=== PATIENT | male | born 1960 | race American Indian/Alaskan Native ===

== ENCOUNTER 2018-12-10 07:06 | Outpatient (CLI) | payer OTHER ==
[2018-12-10 07:50] LABS: Blood Urea Nitrogen 16 mg/dL (9-20)
== END 2018-12-10 07:07 | disposition home or self-care (01) ==
LOC: MRI 07:06
PROVIDERS: ATTEND Urology
DX: R97.20 Elevated prostate specific antigen [PSA] (principal); Z88.0 Allergy status to penicillin
CPT/HCPCS: 36415; 82565; 84520